=== PATIENT | female | born 1955 ===

== ENCOUNTER 2016-05-31 16:44 | Inpatient (IN) | payer MEDICAID ==
[2016-05-31 16:45] VITALS: BMI 25.7
--- NOTE | 2016-05-31 17:12 | CT ---
PROCEDURE: CT HEAD WITHOUT CONTRAST. HISTORY: code stroke COMPARISON: None available. TECHNIQUE: Axial computed tomography images were obtained through the head/brain without intravenous contrast. Radiation dose: Total exam DLP = 740.79 mGy-cm. This CT exam was performed using one or more of the following dose reduction techniques: Automated exposure control, adjustment of the mA and/or kV according to patient size, and/or use of iterative reconstruction technique. FINDINGS: HEMORRHAGE: No intracranial hemorrhage. BRAIN: No mass effect or edema. Intracranial atherosclerotic calcifications. The leon-white matter differentiation appears intact. Please note that MRI with diffusion imaging is more sensitive in the detection of acute ischemic event. VENTRICLES: No hydrocephalus. CALVARIUM: Unremarkable. PARANASAL SINUSES: Unremarkable as visualized. No significant inflammatory changes. MASTOID AIR CELLS: Unremarkable as visualized. No inflammatory changes. OTHER FINDINGS: None. IMPRESSION: No acute intracranial pathology identified. Findings discussed with Dr. Machuca on 05/31/16 at 5:05 p.m.
[2016-05-31 17:18] LABS: BASO # 0.1 K/uL (0.0-0.2); BASO % 1.3 % (0.0-2.0); EOS # 0.2 K/uL (0.0-0.7); EOS % 3.1 % (0.0-4.0); HEMATOCRIT 38.6 % (34.0-47.0); LYMPH # 1.8 K/uL (1.0-4.3); LYMPH % 22.8 % (20.0-40.0); MEAN CELL VOLUME 99.5 fl (81.0-99.0); MEAN CORPUSCULAR HEMOGLOBIN 32.4 pg (27.0-31.0); MEAN CORPUSCULAR HGB CONC 32.6 g/dL (33.0-37.0); MEAN PLATELET VOLUME 8.7 fl (7.2-11.7); MONO # 0.8 K/uL (0.0-0.8); MONO % 9.8 % (0.0-10.0); RED CELL DISTRIBUTION WIDTH 15.7 % (11.5-14.5); WHITE BLOOD COUNT 7.9 K/uL (4.8-10.8)
--- NOTE | 2016-05-31 17:28 | ED PDOC ---
HPI:STROKE - Time Time: 16:47 - Historian Historian: Patient - Chief Complaint Chief Complaint: Weakness, Numbness, Slurred speech, Difficulty walking - Onset Date: 05/31/16 Onset: Just prior to presenting - Timing Timing: Improved - Severity of pain Maximum severity:: Moderate - Associated Symptoms Associated symptoms:: Headache, Numbness, Nausea, Visual (blurry vision) - Notes: Notes:: 61 year old female with a pertinent medical history of HTN, HIV, hypercholesterolemia, and chronic lower back pain presents to the ED with a possible CVA. She reports having numbness and weakness to her left arm and legs , and trouble talking and talking an hour prior to arrival, but upon presenting to the ED most of her symptoms have resolved. She first went to the clinic, and they advised her to go to the ED for her symptoms. Upon arrival a code stroke was called. She reports having intermittent episodes of hand numbness that occurs in both hands (for the past 1x month), but is taking longer and longer to resolve. She also reports having a headache for the past 1x day, and a cough productive of greenish-grayish sputum that started 2x weeks ago. She also has associated symptoms of nausea and blurry vision. She denies having chest pain, shortness of breath, vomiting, diarrhea, and swelling. Of note: patient has an irregularly irregular heartbeat. She reports that she had a similar experience 4x years ago. She went to her PMD and he referred her to a seo engineer but she was unable to schedule an appointment. PMD: Anyi Ashford MD. NIHSS Stroke Scale - Date/Time Evaluation Performed Date Performed: 05/31/16 Time Performed: 16:45 When Was NIHSS Performed: Baseline - How Severe is the Stroke Level of Consciousness: 0=Alert LOC to Questions: 0=Both comments correct LOC to commands: 0=Obeys both correctly Best Gaze: 0=Normal Visual: 0=No visual loss Facial: 1=Minor asymmetry Motor Arm - Left: 0=No drift Motor Arm - Right: 0=No drift Motor Leg - Left: 0=No drift Motor Leg - Right: 0=No drift Limb Ataxia: 0=Absent Sensory: 1=Mild to moderate loss Best Language: 0=No aphasia Dysarthia: 1=Mild to moderate slurring Extinction & Inattention (Neglect): 0=Normal, no object Score: 3 rTPA Inclusion/Exclusion - Refusal of Treatment Patient Refused Treatment: No - Inclusion Criteria for Altepase Patient is 18 years or Older: Yes The Clinical Diagnosis of Ischemic Stroke That is Causing a Potentially Disabling Neurological Deficit: No Time of Onset is Well Established to be Less Than 270 Minute Before Treatment Would Begin: Yes Risk/Benefit Discussed With Patient/Family Member Present: Yes - Exclusion Criteria for Altepase Uncontrolled Hypertension at Time of Treatment (Systolic BP above 185 or Diastolic BP above 110 mmHg): No - Warning to TPA With Conditions Condition: Stroke Serevity Too Mild Past Medical History Reviewed: Historical Data, Nursing Documentation, Vital Signs Vital Signs: Last Vital Signs Temp 98.0 F 05/31/16 16:47 Pulse 77 05/31/16 17:11 Resp 15 05/31/16 17:11 BP 98/49 L 05/31/16 17:11 Pulse Ox 100 05/31/16 17:11 - Medical History PMH: Arthritis (chronic, left knee), Back Problems (herniated discs x3 (low back )), HIV, HTN, Hyperlipidemia, Osteoporosis Denies: Diabetes (patient denies), Chronic Kidney Disease - Surgical History Surgical History: (x1) - Family History Family History: States: Diabetes, Hypertension - Social History Current smoker - smoking cessation education provided: Yes Alcohol: None Drugs: Denies - Home Medications Home Medications: Ambulatory Orders Medication Instructions Recorded Aspirin [Ecotrin] 81 mg PO DAILY 03/31/16 DULoxetine [Cymbalta] 60 mg PO DAILY 03/31/16 Darunavir [Prezista] 800 mg PO HS 03/31/16 Emtricitabine/Tenofovir Diso 1 tab PO HS 03/31/16 [Truvada 200 MG-300 MG] Enalapril Maleate [Vasotec] 5 mg PO DAILY 03/31/16 Ritonavir [Norvir] 100 mg PO HS 03/31/16 Cyclobenzaprine [Cyclobenzaprine 10 mg PO TID PRN #20 tab 04/14/16 HCl] Ascorbic Acid [Vitamin C] 1 tab PO DAILY 05/31/16 Gabapentin [Neurontin] 800 mg PO TID 05/31/16 QUEtiapine [Seroquel] 100 mg PO HS 05/31/16 traMADol [Ultram] 50 mg PO BID PRN 04/19/17 - Allergies Allergies/Adverse Reactions: Allergies Allergy/AdvReac Type Severity Reaction Status Date / Time No Known Allergies Allergy Verified 12/19/15 19:37 Review of Systems ROS Statement: Except As Marked, All Systems Reviewed And Found Negative Constitutional: Negative for: Fever Eyes: Positive for: Vision Change (blurry vision) Cardiovascular: Negative for: Chest Pain Respiratory: Positive for: Cough, Sputum (greenish leon. no blood). Negative for: Shortness of Breath, Hemoptysis Gastrointestinal: Positive for: Nausea. Negative for: Vomiting, Diarrhea Musculoskeletal: Negative for: Other (swelling) Neurological: Positive for: Weakness, Numbness, Change in Speech, Headache Physical Exam - Reviewed Nursing Documentation Reviewed: Yes Vital Signs Reviewed: Yes - Physical Exam Appears: Positive for: Well, Non-toxic, No Acute Distress Head Exam: Positive for: ATRAUMATIC, NORMOCEPHALIC Skin: Positive for: Warm, Dry, Pallor Eye Exam: Positive for: Normal appearance, EOMI, PERRL Cardiovascular/Chest: Positive for: Bradycardia, Irregularly Irregular. Negative for: Murmur Respiratory: Positive for: Normal Breath Sounds (lungs are clear) Pulses-Dorsalis Pedis (L): 2+ Pulses-Dorsalis Pedis (R): 2+ (DP pulses strong) Pulses-Radial (L): 2+ Pulses-Radial (R): 2+ (radial pulses strong) Gastrointestinal/Abdominal: Positive for: Normal Exam, Soft. Negative for: Tenderness, Other (edema) Neurologic/Psych: Positive for: Alert, Oriented (3x), Facial Droop (subtle left sided facial droop. Does not include the eyebrow), Other (subjective decreased light touch to left side of the face and to left arm. Mild dysarthria) - Laboratory Results Result Diagrams: 05/31/16 17:05 05/31/16 17:05 - ECG ECG Rhythm: Positive for: Sinus Rhythm (rate of 70). Negative for: ST/T Changes Interpretation Of Abn EKG: frequent PVCs in the pattern of bigeminy. O2 Sat by Pulse Oximetry: 100 (RA) Pulse Ox Interpretation: Normal - CT Scan/US CT head Other Rad Studies (CT/US): Read By Radiologist, Radiology Report Reviewed Medical Decision Making Medical Decision Makin:47 Initial impression: 61 year old female with bradyarrythmia or a possible TIA. Differential diagnoses include but are not limited to electrolyte abnormality, acute coronary syndrome, or encephalopathy. Plan is to hospitalize patient for complete neurological and cardiological work up. Initial plan: * CT head w/o contrast (code stroke) * type and screen * EKG * b-type natriuretic peptide * CMP * hemoglobin A1C * lipid panel * magnesium * phosphorous * TSH * troponin I * CBC * PTT * prothrombin time * diagnostic cardiac sonographer * accucheck * reevaluation 16:56 CT head (no contrast) results read and reviewed by radiologist. FINDINGS: HEMORRHAGE: No intracranial hemorrhage. BRAIN: No mass effect or edema. Intracranial atherosclerotic calcifications. The leon- white matter differentiation appears intact. Please note that MRI with diffusion imaging is more sensitive in the detection of acute ischemic event. VENTRICLES: No hydrocephalus. CALVARIUM: Unremarkable. PARANASAL SINUSES: Unremarkable as visualized. No significant inflammatory changes. MASTOID AIR CELLS: Unremarkable as visualized. No inflammatory changes. OTHER FINDINGS: None. IMPRESSION: No acute intracranial pathology identified. Findings discussed with Dr. Machuca on 05/31/16 at 5:05 p.m. 1730 ASA ordered for possible TIA Percocet ordered for chronic pain 18:05 Discussed case and EKG findings with Dr. Hansen. He will further evaluate the patient in hospital and has no other recommendations at this time. Labs unremarkable CXR demonstrates possible RML infiltrate DW Dr Rodrigo DIXON resident for hospitalization Scribe Attestation: Documented by Sandy Johnson, acting as a scribe for Salma Larson MD. Provider Scribe Attestation: All medical record entries made by the Scribe were at my direction and personally dictated by me. I have reviewed the chart and agree that the record accurately reflects my personal performance of the history, physical exam, medical decision making, and the department course for this patient. I have also personally directed, reviewed, and agree with the discharge instructions and disposition. Disposition - Clinical Impression Clinical Impression: Transient cerebral ischemia, Pneumonia, Cardiac arrhythmia - Disposition Disposition Time: 16:50 Condition: STABLE - Pt Status Changed To: Hospital Disposition Of: Inpatient - Admit Certification Admit to Inpatient:: After my assessment, the patient will require hospitalization for at least two midnights. This is because of the severity of symptoms shown, intensity of services needed, and/or the medical risk in this patient being treated as an outpatient. - POA Present On Arrival: None Core Measure Indicators: Code Stroke
[2016-05-31 17:29] LABS: ALB/GLOB RATIO 1.2 (1.0-2.1); ALKALINE PHOSPHATASE 79 U/L (38-126); ALT/SGPT 22 U/L (9-52); AST/SGOT 24 U/L (14-36); BILIRUBIN,TOTAL 0.3 mg/dl (0.2-1.3); BLOOD UREA NITROGEN 22 mg/dl (7-17); CALCIUM 9.6 mg/dL (8.4-10.2); CARBON DIOXIDE 30 mmol/L (22-30); CHLORIDE 103 mmol/L (98-107); CHOLESTEROL 203 mg/dL (0-199); GFR AFRICAN-AMERICAN > 60; GLUCOSE,RANDOM 91 mg/dL (65-105); MAGNESIUM 2.1 MG/DL (1.6-2.3); POTASSIUM 4.4 MMOL/L (3.6-5.0); SODIUM 141 mmol/l (132-148); TOTAL PROTEIN 6.8 G/DL (6.3-8.2)
[2016-05-31 17:43] LABS: PARTIAL THROMBOPLASTIN TIME 26.4 SECONDS (23.3-32.5)
[2016-05-31 17:59] LABS: THYROID STIMULATING HORMONE 0.02 mIU/ML (0.46-4.68)
[2016-05-31] MEDS ORDERED: Sodium Chloride 0.9% 1,000 ML IV STA (18:12)
[2016-05-31] MEDS ORDERED: cefTRIAXone (Rocephin) 1 gm Inj ONE (18:12)
[2016-05-31] MEDS ORDERED: Azithromycin 500 MG in Sodium Chloride 0.9% 250 ML IVPB ONE (18:15)
[2016-05-31] MEDS ORDERED: Oxycodone/Acetaminophen 5/325 mg Tab PO STA (18:25)
[2016-05-31] MEDS ORDERED: Oxycodone/Acetaminophen 5/325 mg Tab ONE (19:02)
--- NOTE | 2016-05-31 19:08 | CP.PCM.HP ---
History of Present Illness - History of Present Illness History of Present Illness: 61yo F with PMHx HIV, polio, chronic back pain d/t neuropathy, chronic foot pain , gout, HTN, HLD admitted for TIA, RML PNA, and arrythmia. c/o floaters yesterday in vision. Denies complete loss of vision, bright light, flashing light. Reports h/o floaters in vision for months, last check with opthomology WNL. c/o UE numbness in both hands/fingers L>R which is intermittent and resolves. 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 c/o slurring of speech x5 months, last noticed by PCP Dr. Ashford today which prompeted ED eval. a/w feeling gait imbalance which resolved. In addition c/o productive cough x2 weeks , green sputum. h/o chronic smoking. Denies SOB, wheezing, fever, chills, n/v. Denies chest pain, palpitations. In addition c/o dysuria, denies hematuria. Previously followed with pain management for back pain and h/o prior epidurals. Follow with Dr. Ashford for HIV management, 04/19/16 last viral load undetectable, CD4 850. ED course: VSS CBC, no leukocytosis CMP coags WNL troponin neg pBNP WNL lipid panel, chol 203 TSH 0.[address] head no acute change EKG-PVCs in bigeminy c/s Cardio, observe pt ASA 325mg x1 azithromycin ceftriaxone Social hx: smoking 1ppd x30 years, EtOH occasionally, denies current drug use Surgical hx: C section FHx:denies cancer or autoimmune disease Allergies: NKDA meds: checked in [facility] Present on Admission - Present on Admission Any Indicators Present on Admission: No Review of Systems - Constitutional Constitutional: absent: Chills, Fever - EENT Eyes: Change in Vision - Cardiovascular Cardiovascular: absent: Chest Pain - Respiratory Respiratory: absent: Dyspnea - Gastrointestinal Gastrointestinal: absent: Abdominal Pain, Diarrhea, Nausea, Vomiting - Genitourinary Genitourinary: absent: Dysuria, Hematuria - Musculoskeletal Musculoskeletal: absent: Back Pain - Neurological Neurological: Focal Weakness, Other Visual Disturbances Past Patient History - Infectious Disease Hx of Infectious Diseases: None - Tetanus Immunizations Tetanus Immunization: Unknown - Past Medical History & Family History Past Medical History?: Yes - Past Social History Alcohol: None Drugs: Denies - CARDIAC Hx Hypertension: Yes - PULMONARY Hx Respiratory Disorders: No - NEUROLOGICAL Hx Neurological Disorder: (Neuropathy ) - HEENT Hx HEENT Problems: Yes Other/Comment: Use contact lenses - RENAL Hx Chronic Kidney Disease: No - ENDOCRINE/METABOLIC Hx Diabetes Mellitus Type 2: Yes - HEMATOLOGICAL/ONCOLOGICAL Hx Human Immunodeficiency Virus (HIV): Yes - INTEGUMENTARY Hx Dermatological Problems: No - MUSCULOSKELETAL/RHEUMATOLOGICAL Hx Arthritis: Yes (chronic, left knee) Hx Osteoporosis: Yes - GASTROINTESTINAL Hx Gastrointestinal Disorders: No - GENITOURINARY/GYNECOLOGICAL Hx Genitourinary Disorders: No - PSYCHIATRIC Hx Psychophysiologic Disorder: No Hx Substance Use: No - SURGICAL HISTORY Hx Surgeries: Yes Hx Orthopedic Surgery: Yes - ANESTHESIA Hx Anesthesia: Yes Hx Anesthesia Reactions: No Meds Allergies/Adverse Reactions: Allergies Allergy/AdvReac Type Severity Reaction Status Date / Time No Known Allergies Allergy Verified 12/19/15 19:37 Physical Exam - Constitutional Appears: Well, No Acute Distress - Head Exam Head Exam: ATRAUMATIC, NORMAL INSPECTION - Eye Exam Eye Exam: EOMI, PERRL - ENT Exam ENT Exam: Mucous Membranes Moist - Neck Exam Neck exam: Positive for: Normal Inspection - Respiratory Exam Respiratory Exam: Clear to Auscultation Bilateral - Cardiovascular Exam Cardiovascular Exam: REGULAR RHYTHM - GI/Abdominal Exam GI & Abdominal Exam: Normal Bowel Sounds, Soft - Extremities Exam Extremities exam: Positive for: normal inspection. Negative for: pedal edema - Neurological Exam Neurological exam: Alert, CN II-XII Intact, Normal Gait, Oriented x3 - Skin Skin Exam: Dry, Warm Results - Vital Signs Recent Vital Signs: Last Vital Signs Temp 98.0 F 05/31/16 16:47 Pulse 77 05/31/16 18:22 Resp 15 05/31/16 18:22 BP 133/77 05/31/16 18:22 Pulse Ox 100 05/31/16 18:22 - Labs Result Diagrams: 05/31/16 17:05 05/31/16 17:05 Assessment & Plan - Assessment and Plan (Free Text) Assessment: 61yo F with PMHx HIV, polio, chronic back pain d/t neuropathy, chronic foot pain , gout, HTN, HLD admitted for TIA, RML PNA and arrythmia. TIA -CT head no acute change -ASA 81mg -atorvastatin 40mg -ASCVD 10yr risk 8.3% -PT/OT -follows outpt with Neuro Dr. Beltran -consider Neuro c/s and MRI RML PNA -comparision to 04/14/16 CXR shows no acute change -azithromycin x1 -ceftriaxone x1 -FU CXR final read. May consider PO abx if PNA on final read. -will wait to order next dose of abx till final read arrythmia -may be 2/2/ hypothyroidism -repeat TFTs -EKG-PVCs in bigeminy -c/s Cardio in ED, observe pt -cont tele hypothyroidism -TSH 0.02 -last TFTs WNL 05/03/16 TSH 1.33, T4 1.3 -repeat TFTs HIV -c/w home meds, last taken yesterday night -04/19/16 vl not detectable -04/19/16 CD4 count 850 -no ppx abx at this time HTN -enalapril dysuria -FU UA DVT ppx -lovenox Decision To Admit - Pt Status Changed To: Hospital Disposition Of: Inpatient - Admit Certification Admit to Inpatient:: After my assessment, the patient will require hospitalization for at least two midnights. This is because of the severity of symptoms shown, intensity of services needed, and/or the medical risk in this patient being treated as an outpatient. - . Bed Request Type: Telemetry Admitting Physician: Sadie Matthews
[2016-05-31 20:34] LABS: RBC URINE 5 /hpf (0-3); URINE BILIRUBIN NEGATIVE (NEGATIVE); URINE BLOOD NEGATIVE (NEGATIVE); URINE COLOR YELLOW (YELLOW); URINE GLUCOSE (UA) NEG (Normal); URINE KETONE NEGATIVE (NEGATIVE); URINE LEUKOCYTE ESTERASE LARGE Leu/uL (Negative); URINE PROTEIN NEGATIVE (NEGATIVE); URINE UROBILINOGEN 0.2-1.0 mg/dL (0.2-1.0); WBC URINE 42 /hpf (0-5)
[2016-05-31] MEDS: Emtricitabine-Tenofovir 200 mg-300 mg Tab PO SCH (21:26)
[2016-06-01 05:38] LABS: BASO # 0.1 K/uL (0.0-0.2); BASO % 1.1 % (0.0-2.0); EOS # 0.3 K/uL (0.0-0.7); EOS % 4.7 % (0.0-4.0); HEMATOCRIT 38.3 % (34.0-47.0); LYMPH # 2.3 K/uL (1.0-4.3); LYMPH % 33.4 % (20.0-40.0); MEAN CELL VOLUME 99.8 fl (81.0-99.0); MEAN CORPUSCULAR HEMOGLOBIN 32.3 pg (27.0-31.0); MEAN CORPUSCULAR HGB CONC 32.4 g/dL (33.0-37.0); MEAN PLATELET VOLUME 8.9 fl (7.2-11.7); MONO # 0.7 K/uL (0.0-0.8); MONO % 10.8 % (0.0-10.0); NEUT # 3.4 K/uL (1.8-7.0); NRBC % 0.1 % (0.0-0.0); RED CELL DISTRIBUTION WIDTH 15.5 % (11.5-14.5); WHITE BLOOD COUNT 6.8 K/uL (4.8-10.8)
[2016-06-01 05:45] LABS: BLOOD UREA NITROGEN 18 mg/dl (7-17); CALCIUM 8.5 mg/dL (8.4-10.2); CARBON DIOXIDE 26 mmol/L (22-30); CHLORIDE 107 mmol/L (98-107); GFR AFRICAN-AMERICAN > 60; GLUCOSE,RANDOM 87 mg/dL (65-105); POTASSIUM 3.9 MMOL/L (3.6-5.0); SODIUM 143 mmol/l (132-148)
[2016-06-01 05:53] LABS: T4 4.88 ug/dl (5.5-11.0)
--- NOTE | 2016-06-01 07:38 | CP.PCM.PN ---
Subjective - Date & Time of Evaluation Date of Evaluation: 06/01/16 Time of Evaluation: 07:38 - Subjective Subjective: pt seen and examined at bedside this morning. No acute events overnight. Lying in bed comfortably, NAD. Pt reports sleeping well overnight without any issues. Reports minor tingling in hands that has improved yesterday. Denies dysuria, cloudy, foul smelling urine today. No new medical issues. Denies fever/chills, headaches, changes in vision, slurred speech, CP/SOB/RAMIREZ/cough, N/V/D/C, urinary symptoms, numbness/tingling. Objective - Vital Signs/Intake and Output Vital Signs (last 24 hours): Temp Pulse Resp BP Pulse Ox 97.8 F 60 18 102/62 97 06/01/16 05:07 06/01/16 05:07 06/01/16 05:07 06/01/16 05:07 06/01/16 05:07 - Medications Medications: Current Medications Aspirin (Ecotrin) 81 mg PO DAILY [facility] Atorvastatin Calcium (Lipitor) 40 mg PO DAILY [facility] Cyclobenzaprine HCl (Flexeril) 10 mg PO TID PRN PRN Reason: Muscle spasm Darunavir (Prezista) 800 mg PO HS [facility] Last Admin: 05/31/16 21:26 Dose: 800 mg Duloxetine HCl (Cymbalta) 60 mg PO DAILY [facility] Emtricitabine/Tenofovir (Truvada 200 Mg-300 Mg) 1 tab PO HS [facility] Last Admin: 05/31/16 21:26 Dose: 1 tab Enalapril Maleate (Vasotec) 5 mg PO DAILY [facility] Enoxaparin Sodium (Lovenox) 40 mg SC DAILY [facility] PRN Reason: Protocol Gabapentin (Neurontin) 800 mg PO TID [facility] Nicotine (Nicoderm Cq) 1 patch TD DAILY [facility] Quetiapine Fumarate (Seroquel) 100 mg PO HS [facility] Last Admin: 05/31/16 23:47 Dose: 100 mg Ritonavir (Norvir) 100 mg PO HS [facility] Last Admin: 05/31/16 21:25 Dose: 100 mg Tramadol HCl (Ultram) 50 mg PO BID PRN PRN Reason: Pain, severe (8-10) - Labs Labs: 06/01/16 04:10 06/01/16 04:10 PT 10.3 SECONDS (9.6-11.2) 05/31/16 17:05 INR 0.99 (0.92-1.08) 05/31/16 17:05 APTT 26.4 SECONDS (23.3-32.5) 05/31/16 17:05 - Constitutional Appears: Well, Non-toxic, No Acute Distress - Eye Exam Eye Exam: EOMI. absent: Conjunctival injection, Nystagmus, Scleral icterus Pupil Exam: NORMAL ACCOMODATION, PERRL - ENT Exam ENT Exam: Mucous Membranes Moist - Neck Exam Neck Exam: Full ROM - Respiratory Exam Respiratory Exam: Decreased Breath Sounds (decreased breath sounds at lung bases bilaterally. ), Clear to Ausculation Bilateral, NORMAL BREATHING PATTERN. absent: Rales, Rhonchi, Wheezes, Respiratory Distress - Cardiovascular Exam Cardiovascular Exam: Irregular Rhythm. absent: Tachycardia, Gallop, JVD, Rubs, Murmur - GI/Abdominal Exam GI & Abdominal Exam: Soft, Normal Bowel Sounds. absent: Distended, Firm, Guarding, Rigid, Tenderness - Extremities Exam Extremities Exam: Full ROM, Normal Capillary Refill, Normal Inspection. absent : Calf Tenderness, Pedal Edema - Neurological Exam Neurological Exam: Alert, Awake, CN II-XII Intact, Oriented x3. absent: Normal Gait (unable to access gait this morning, pt didnt want to get out of bed) Neuro motor strength exam: Left Upper Extremity: 5, Right Upper Extremity: 3 ( pt reports this is baseline weakness), Left Lower Extremity: 4, Right Lower Extremity: 4 - Psychiatric Exam Psychiatric exam: Normal Affect, Normal Mood - Skin Skin Exam: Dry, Intact, Normal Color, Warm Assessment and Plan (1) TIA (transient ischemic attack) Assessment & Plan: Code stroke called in ED Admitted to Tele Non-Contrast Head CT: no acute intracranial pathology. Brain MRI: pending Carotid Doppler: pending CBC: wnl CMP: wnl Troponin: negative Coags: wnl Folate: wnl B12: wnl Given 325mg Aspirin Atorvastatin 40mg QD Neurology Consult appreciated PT/OT eval and tx Status: Acute (2) Urinary tract infection Assessment & Plan: -UA: large leukocyte esterase, 42 WBCs -1 dose of Rochephin in ED -another dose of 1gm Rocephin Status: Acute (3) Pneumonia Assessment & Plan: afebrile cough resolved as per pt CBC: 6.8>12.4/38.2<231 CXR: no evidence of acute pulmonary disease of significant interval change since previous exam. Given one dose of Rocephin and one dose of Zithromax in ED. Status: Acute (4) HIV infection, asymptomatic Assessment & Plan: Viral load: undetectable Last CD4+: 800 Continue with home medications Status: Chronic (5) Essential (primary) hypertension Assessment & Plan: continue with home medications Status: Acute (6) DVT prophylaxis Assessment & Plan: Lovenox 40 SC QD Status: Acute
[2016-06-01] MEDS: Enoxaparin 40 mg Syringe SC SCH (09:15)
--- NOTE | 2016-06-01 09:57 | RAD ---
HISTORY: code stroke COMPARISON: Comparison is made to the previous study dated 04/14/2016 FINDINGS: LUNGS: No evidence of new infiltrate or consolidation in the lungs. Pleural thickening at the lung apices are noted again. PLEURA: No significant pleural effusion identified, no pneumothorax apparent. CARDIOVASCULAR: Normal. OSSEOUS STRUCTURES: No significant abnormalities. VISUALIZED UPPER ABDOMEN: Normal. OTHER FINDINGS: None. IMPRESSION: No evidence of acute pulmonary disease or significant interval change since the previous exam.
--- NOTE | 2016-06-01 13:42 | PQF GENQUE ---
This form is a permanent part of the medical record 06/01/16 Dr. Matthews, After workup please clarify if the pneumonia is ruled in or ruled out. Admitted with a productive cough (green sputum) for 2 weeks. Afebrile, WBC 7.9 , CXR: No evidence of acute pulmonary disease. Treated with Rocephin and Zithromax in the ER. Diagnoses include : TIA, UTI, Pneumonia Clarification of your documentation is requested to better reflect the severity of illness and intensity of treatment of your patient. PHYSICIAN'S RESPONSE [ ] Pneumonia ruled in [ ] Pneumonia ruled out [ ] Other explanation ( Please specify) Based on your medical judgment of the clinical indicators outlined above please clarify the following: [] Practitioner response [] If unable to determine, please check the box, sign and date. Present On Admission (POA) Indicator: [] Present at the time of admission [] Not present at the time of admission [] Clinically Undetermined In responding to this query, please exercise your independent professional judgment. The fact that a question is asked does not imply that any particular answer is desired or expected. Thank you for your clarification on this documentation. If you have any questions please call:extension [phone] * Thank you, Lizbeth Caldera RN CDMP [facility]
--- NOTE | 2016-06-01 14:37 | MRI ---
PROCEDURE: MRI BRAIN WITHOUT CONTRAST HISTORY: TIA-like symptoms COMPARISON: Comparison is made to the previous CT of the head dated 05/31/2016. TECHNIQUE: Multiplanar, multisequence MR images of the brain were obtained without intravenous contrast enhancement. FINDINGS: Suboptimal study due to patient's motion. HEMORRHAGE: None DWI: No evidence of an acute or early subacute infarction. BRAIN PARENCHYMA: Questionable with defined hypointense lesion at the anterior aspect of the left cerebellar hemisphere versus artifact seen on image 7 series 5 measures 6 millimeter not clearly seen in the T1 and FLAIR images Few scattered nonspecific small foci of hyperintense T2 and FLAIR signal seen in the white matter suggestive but nonspecific for chronic microvascular ischemic disease. VENTRICLES: Unremarkable. No hydrocephalus. CRANIUM: Unremarkable. ORBITS: Grossly unremarkable. PARANASAL SINUSES/MASTOIDS: Clear VASCULAR SYSTEM: Skull base flow voids intact. OTHER FINDINGS: None. IMPRESSION: No evidence of acute or subacute infarct. Suboptimal study due to patient's motion. Questionable 6 millimeter hypointense T2 well defined lesion at the left cerebellum versus artifact. Few scattered hyperintense T2 and FLAIR signal white matter lesions suggestive but nonspecific for chronic microvascular ischemic disease.
--- NOTE | 2016-06-01 15:23 | CP.PCM.PCO ---
Physician Communication Note - Physician Communication Note Physician Communication Note: Patient with bronchitis - no pneumonia noted at present time.
[2016-06-01] MEDS ORDERED: Oxycodone/Acetaminophen 5/325 mg Tab PO STA (15:54)
[2016-06-01] MEDS: Emtricitabine-Tenofovir 200 mg-300 mg Tab PO SCH (21:46)
--- NOTE | 2016-06-02 00:35 | CP.PCM.CON ---
History of Present Illness - History of Present Illness History of Present Illness: - Chief Complaint Chief Complaint: Weakness, Numbness, Slurred speech, Difficulty walking Receiving treatment for a Positive HIV - Onset Date: 05/31/16 Onset: Just prior to presenting - Timing Timing: Improved - Severity of pain Maximum severity:: Moderate - Associated Symptoms Associated symptoms:: Headache, Numbness, Nausea, Visual (blurry vision) - Notes: Notes:: 61 year old female with a pertinent medical history of HTN, HIV, hypercholesterolemia, and chronic lower back pain presents to the ED with a possible CVA. She reports having numbness and weakness to her left arm and legs , and trouble talking and talking an hour prior to arrival, but upon presenting to the ED most of her symptoms have resolved. She first went to the clinic, and they advised her to go to the ED for her symptoms. Upon arrival a code stroke was called. She reports having intermittent episodes of hand numbness that occurs in both hands (for the past 1x month), but is taking longer and longer to resolve. She also reports having a headache for the past 1x day, and a cough productive of greenish-grayish sputum that started 2x weeks ago. She also has associated symptoms of nausea and blurry vision. She denies having chest pain, shortness of breath, vomiting, diarrhea, and swelling. H/O Multiple disc herniation in the Lumbar area and significant cervical neck pain. History of Tingling and numbness peripherally in both UEs and LEs since she was started on HIV Medicine. Of note: patient has an irregularly irregular heartbeat. She reports that she had a similar experience 4x years ago. She went to her PMD and he referred her to a culinary arts teacher but she was unable to schedule an appointment. PMD: Anyi Ashford MD. NIHSS Stroke Scale - Date/Time Evaluation Performed Date Performed: 05/31/16 Time Performed: 16:45 When Was NIHSS Performed: Baseline - How Severe is the Stroke Level of Consciousness: 0=Alert LOC to Questions: 0=Both comments correct LOC to commands: 0=Obeys both correctly Best Gaze: 0=Normal Visual: 0=No visual loss Facial: 1=Minor asymmetry Motor Arm - Left: 0=No drift Motor Arm - Right: 0=No drift Motor Leg - Left: 0=No drift Motor Leg - Right: 0=No drift Limb Ataxia: 0=Absent Sensory: 1=Mild to moderate loss Best Language: 0=No aphasia Dysarthia: 1=Mild to moderate slurring Extinction & Inattention (Neglect): 0=Normal, no object Score: 3 Last Vital Signs Temp 98.0 F 05/31/16 16:47 Pulse 77 05/31/16 17:11 Resp 15 05/31/16 17:11 BP 98/49 L 05/31/16 17:11 Pulse Ox 100 05/31/16 17:11 - Medical History PMH: Arthritis (chronic, left knee), Back Problems (herniated discs x3 (low back )), HIV, HTN, Hyperlipidemia, Osteoporosis Denies: Diabetes (patient denies), Chronic Kidney Disease - Surgical History Surgical History: (x1) - Family History Family History: States: Diabetes, Hypertension - Social History Current smoker - smoking cessation education provided: Yes Alcohol: None Drugs: Denies - Home Medications Home Medications: Ambulatory Orders Medication Instructions Recorded Aspirin [Ecotrin] 81 mg PO DAILY 03/31/16 DULoxetine [Cymbalta] 60 mg PO DAILY 03/31/16 Darunavir [Prezista] 800 mg PO HS 03/31/16 Emtricitabine/Tenofovir Diso 1 tab PO HS 03/31/16 [Truvada 200 MG-300 MG] Enalapril Maleate [Vasotec] 5 mg PO DAILY 03/31/16 Ritonavir [Norvir] 100 mg PO HS 03/31/16 Cyclobenzaprine [Cyclobenzaprine 10 mg PO TID PRN #20 tab 04/14/16 HCl] Ascorbic Acid [Vitamin C] 1 tab PO DAILY 05/31/16 Gabapentin [Neurontin] 800 mg PO TID 05/31/16 QUEtiapine [Seroquel] 100 mg PO HS 05/31/16 traMADol [Ultram] 50 mg PO BID PRN 05/31/16 - Allergies Allergies/Adverse Reactions: Allergies Allergy/AdvReac Type Severity Reaction Status Date / Time No Known Allergies Allergy Verified 12/19/15 19:37 Review of Systems ROS Statement: Except As Marked, All Systems Reviewed And Found Negative Constitutional: Negative for: Fever Eyes: Positive for: Vision Change (blurry vision) Cardiovascular: Negative for: Chest Pain Respiratory: Positive for: Cough, Sputum (greenish leon. no blood). Negative for: Shortness of Breath, Hemoptysis Gastrointestinal: Positive for: Nausea. Negative for: Vomiting, Diarrhea Musculoskeletal: Negative for: Other (swelling) Neurological: Positive for: Weakness, Numbness, Change in Speech, Headache Physical Exam - Reviewed Nursing Documentation Reviewed: Yes Vital Signs Reviewed: Yes - Physical Exam Appears: Positive for: Well, Non-toxic, No Acute Distress Head Exam: Positive for: ATRAUMATIC, NORMOCEPHALIC Skin: Positive for: Warm, Dry, Pallor Eye Exam: Positive for: Normal appearance, EOMI, PERRL Cardiovascular/Chest: Positive for: Bradycardia, Irregularly Irregular. Negative for: Murmur Respiratory: Positive for: Normal Breath Sounds (lungs are clear) Pulses-Dorsalis Pedis (L): 2+ Pulses-Dorsalis Pedis (R): 2+ (DP pulses strong) Pulses-Radial (L): 2+ Pulses-Radial (R): 2+ (radial pulses strong) Gastrointestinal/Abdominal: Positive for: Normal Exam, Soft. Negative for: Tenderness, Other (edema) Neurologic/Psych: Positive for: Alert, Oriented (3x), Facial Droop (subtle left sided facial droop. Does not include the eyebrow), Other (subjective decreased light touch to left side of the face and to left arm. Mild dysarthria) CT head (no contrast): IMPRESSION: No acute intracranial pathology identified. Disposition - Clinical Impression Clinical Impression: Transient cerebral ischemia, Pneumonia, Cardiac arrhythmia - Disposition Disposition Time: 16:50 Condition: STABLE - Pt Status Changed To: Hospital Disposition Of: Inpatient - Admit Certification Admit to Inpatient:: After my assessment, the patient will require hospitalization for at least two midnights. This is because of the severity of symptoms shown, intensity of services needed, and/or the medical risk in this patient being treated as an outpatient. - POA Present On Arrival: None Core Measure Indicators: Code Stroke Past Patient History - Infectious Disease Hx of Infectious Diseases: None - Tetanus Immunizations Tetanus Immunization: Unknown - Past Medical History & Family History Past Medical History?: Yes - Past Social History Smoking Status: Heavy Smoker > 10 Cigarettes Daily - CARDIAC Hx Cardiac Disorders: Yes Hx Hypercholesterolemia: Yes Hx Hypertension: Yes Other/Comment: irregularly irregular heartbeat (x4 years ago) - PULMONARY Hx Respiratory Disorders: No - NEUROLOGICAL Hx Neurological Disorder: Yes (Neuropathy ) - HEENT Hx HEENT Problems: Yes Other/Comment: Use contact lenses - RENAL Hx Chronic Kidney Disease: No - ENDOCRINE/METABOLIC Hx Endocrine Disorders: No - HEMATOLOGICAL/ONCOLOGICAL Hx Blood Disorders: Yes Hx Human Immunodeficiency Virus (HIV): Yes - INTEGUMENTARY Hx Dermatological Problems: No - MUSCULOSKELETAL/RHEUMATOLOGICAL Hx Musculoskeletal Disorders: Yes Hx Arthritis: Yes (chronic, left knee) Hx Back Pain: Yes (chronic, low back) Hx Falls: No Hx Herniated Disk: Yes (x3) Hx Osteoporosis: Yes - GASTROINTESTINAL Hx Gastrointestinal Disorders: No - GENITOURINARY/GYNECOLOGICAL Hx Genitourinary Disorders: No - PSYCHIATRIC Hx Psychophysiologic Disorder: No Hx Substance Use: No - SURGICAL HISTORY Hx Surgeries: Yes Hx Section: Yes (x1) Hx Orthopedic Surgery: Yes - ANESTHESIA Hx Anesthesia: Yes Hx Anesthesia Reactions: No Hx Malignant Hyperthermia: No Meds Allergies/Adverse Reactions: Allergies Allergy/AdvReac Type Severity Reaction Status Date / Time No Known Allergies Allergy Verified 12/19/15 19:37 - Medications Medications: Current Medications Aspirin (Ecotrin) 81 mg PO DAILY [facility] Last Admin: 06/01/16 09:15 Dose: 81 mg Atorvastatin Calcium (Lipitor) 40 mg PO DAILY [facility] Last Admin: 06/01/16 09:15 Dose: 40 mg Cyclobenzaprine HCl (Flexeril) 10 mg PO TID PRN PRN Reason: Muscle spasm Darunavir (Prezista) 800 mg PO HS [facility] Last Admin: 06/01/16 21:46 Dose: 800 mg Duloxetine HCl (Cymbalta) 60 mg PO DAILY [facility] Last Admin: 06/01/16 09:14 Dose: 60 mg Emtricitabine/Tenofovir (Truvada 200 Mg-300 Mg) 1 tab PO [facility] Last Admin: 06/01/16 21:46 Dose: 1 tab Enalapril Maleate (Vasotec) 5 mg PO DAILY [facility] Last Admin: 06/01/16 09:16 Dose: 5 mg Enoxaparin Sodium (Lovenox) 40 mg SC DAILY [facility] PRN Reason: Protocol Last Admin: 06/01/16 09:15 Dose: 40 mg Gabapentin (Neurontin) 800 mg PO TID [facility] Last Admin: 06/01/16 16:02 Dose: 800 mg Ceftriaxone Sodium 1 gm/ (Sodium Chloride) 100 mls @ 100 mls/hr IVPB DAILY [facility] Last Admin: 06/01/16 16:03 Dose: 100 mls/hr Nicotine (Nicoderm Cq) 1 patch TD DAILY [facility] Last Admin: 06/01/16 09:15 Dose: 1 patch Quetiapine Fumarate (Seroquel) 100 mg PO HS [facility] Last Admin: 06/01/16 21:46 Dose: 100 mg Ritonavir (Norvir) 100 mg PO HS [facility] Last Admin: 06/01/16 21:46 Dose: 100 mg Tramadol HCl (Ultram) 50 mg PO BID PRN PRN Reason: Pain, severe (8-10) Last Admin: 06/01/16 21:55 Dose: 50 mg Physical Exam - Neurological Exam Additional comments: Mental Status: Awake, Alert, Oriented X 3 Normal memory X 3 Fluent coherent speech Cranial Nerves II to XII: No Deficits Motor: Normal Tone, Normal Power limited neck movements Positive Lasegue test bilaterally History of multiple disc lesions and herniation in the Lower Back and the Cervical Spine. Sensory: Reduced sensation peripherally Cerebellar: Normal FNT Difficulty performing HST and Tandem walking Stature and Gait: Normal when slow. Results - Vital Signs Recent Vital Signs: Last Vital Signs Temp 98.1 F 06/01/16 23:52 Pulse 50 L 06/01/16 23:52 Resp 20 06/01/16 23:52 BP 119/51 L 06/01/16 23:52 Pulse Ox 100 06/01/16 23:52 - Labs Result Diagrams: 06/01/16 04:10 06/01/16 04:10 Labs: Laboratory Results - last 24 hr 06/01/16 06/01/16 04:10 09:02 WBC 6.8 RBC 3.84 Hgb 12.4 Hct 38.3 MCV 99.8 H MCH 32.3 H MCHC 32.4 L RDW 15.5 H Plt Count 231 MPV 8.9 Neut % (Auto) 50.0 Lymph % (Auto) 33.4 Cloud % (Auto) 10.8 H Eos % (Auto) 4.7 H Baso % (Auto) 1.1 Neut # 3.4 Lymph # 2.3 Cloud # 0.7 Eos # 0.3 Baso # 0.1 Sodium 143 Potassium 3.9 Chloride 107 Carbon Dioxide 26 Anion Gap 14 BUN 18 H Creatinine 0.6 L Est GFR ( Amer) > 60 Est GFR (Non-Af Amer) > 60 Random Glucose 87 Calcium 8.5 Vitamin B12 806 Thyroxine (T4) 4.88 L Total T3 0.846 L Assessment & Plan (1) Pneumonia Status: Deleted (2) TIA (transient ischemic attack) Status: Acute (3) Gout of ankle Status: Acute (4) Cervical radiculopathy Status: Acute (5) Radiculopathy of lumbosacral region Status: Acute (6) 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
[2016-06-02 01:05] LABS: FOLATE > 20.0 ng/mL
--- NOTE | 2016-06-02 07:58 | CP.PCM.PN ---
Subjective - Date & Time of Evaluation Date of Evaluation: 06/02/16 Time of Evaluation: 07:58 - Subjective Subjective: pt seen and examined at bedside. No acute events overnight. Pt reports back pain secondary to hernias was causing her pain overnight and had difficulty sleeping. OOB/ambulating with mild lightheadedness. Left hand numbness unchanged but pt reports this is chronic. Urinating without symptoms. Denies cough. No new medical complaints. Denies fever/chills, headaches, changes in vision, CP/SOB/Palpitations, N/V/D/C, urinary symptoms, weakness. Objective - Vital Signs/Intake and Output Vital Signs (last 24 hours): Temp Pulse Resp BP Pulse Ox 97.4 F L 52 L 18 88/56 L 98 06/02/16 04:54 06/02/16 04:54 06/02/16 04:54 06/02/16 04:54 06/02/16 04:54 - Medications Medications: Current Medications Aspirin (Ecotrin) 81 mg PO DAILY [facility] Last Admin: 06/01/16 09:15 Dose: 81 mg Atorvastatin Calcium (Lipitor) 40 mg PO DAILY [facility] Last Admin: 06/01/16 09:15 Dose: 40 mg Cyclobenzaprine HCl (Flexeril) 10 mg PO TID PRN PRN Reason: Muscle spasm Darunavir (Prezista) 800 mg PO [facility] Last Admin: 06/01/16 21:46 Dose: 800 mg Duloxetine HCl (Cymbalta) 60 mg PO DAILY [facility] Last Admin: 06/01/16 09:14 Dose: 60 mg Emtricitabine/Tenofovir (Truvada 200 Mg-300 Mg) 1 tab PO HS [facility] Last Admin: 06/01/16 21:46 Dose: 1 tab Enalapril Maleate (Vasotec) 5 mg PO DAILY [facility] Last Admin: 06/01/16 09:16 Dose: 5 mg Enoxaparin Sodium (Lovenox) 40 mg SC DAILY [facility] PRN Reason: Protocol Last Admin: 06/01/16 09:15 Dose: 40 mg Gabapentin (Neurontin) 800 mg PO TID [facility] Last Admin: 06/01/16 16:02 Dose: 800 mg Ceftriaxone Sodium 1 gm/ (Sodium Chloride) 100 mls @ 100 mls/hr IVPB DAILY [facility] Last Admin: 06/01/16 16:03 Dose: 100 mls/hr Nicotine (Nicoderm Cq) 1 patch TD DAILY [facility] Last Admin: 06/01/16 09:15 Dose: 1 patch Quetiapine Fumarate (Seroquel) 100 mg PO HS [facility] Last Admin: 06/01/16 21:46 Dose: 100 mg Ritonavir (Norvir) 100 mg PO HS [facility] Last Admin: 06/01/16 21:46 Dose: 100 mg Tramadol HCl (Ultram) 50 mg PO BID PRN PRN Reason: Pain, severe (8-10) Last Admin: 06/01/16 21:55 Dose: 50 mg - Labs Labs: 06/01/16 04:10 06/01/16 04:10 PT 10.3 SECONDS (9.6-11.2) 05/31/16 17:05 INR 0.99 (0.92-1.08) 05/31/16 17:05 APTT 26.4 SECONDS (23.3-32.5) 05/31/16 17:05 - Constitutional Appears: Non-toxic, No Acute Distress - Eye Exam Eye Exam: EOMI. absent: Nystagmus Pupil Exam: NORMAL ACCOMODATION, PERRL - ENT Exam ENT Exam: Mucous Membranes Moist - Neck Exam Neck Exam: Full ROM, Normal Inspection - Respiratory Exam Respiratory Exam: Clear to Ausculation Bilateral, NORMAL BREATHING PATTERN. absent: Rales, Rhonchi, Wheezes - Cardiovascular Exam Cardiovascular Exam: Irregular Rhythm. absent: Tachycardia, Gallop, JVD, Rubs, Murmur - GI/Abdominal Exam GI & Abdominal Exam: Soft, Normal Bowel Sounds. absent: Tenderness - Extremities Exam Extremities Exam: Full ROM, Normal Inspection. absent: Calf Tenderness - Neurological Exam Neurological Exam: Alert, Awake, CN II-XII Intact, Oriented x3. absent: Altered - Psychiatric Exam Psychiatric exam: Normal Affect, Normal Mood Assessment and Plan (1) TIA (transient ischemic attack) Assessment & Plan: Code stroke called in ED Admitted to [facility] Non-Contrast Head CT: no acute intracranial pathology. Brain MRI: no evidence of acute/subacute infarct, suboptimal study due to patients motion, questionable 6mm hypointense T2 well defined lesion at left cerebellum vs artifact. Few scattered hypointesive T2 and FLAIR signal white matter lesions suggestive but nonspecific for chronic microvascular lesions. Carotid Doppler: pending CBC: wnl CMP: wnl Troponin: negative x2 Coags: wnl Folate: wnl B12: wnl Given 325mg Aspirin started on Aggrenox BID Atorvastatin 40mg QD Neurology Consult appreciated PT/OT eval and tx Status: Acute (2) Urinary tract infection Assessment & Plan: -UA: large leukocyte esterase, 42 WBCs -day 3 of abx -3 doses of Rochephin Status: Acute (3) HIV infection, asymptomatic Assessment & Plan: Viral load: undetectable Last CD4+: 800 Continue with home medications Status: Chronic (4) Essential (primary) hypertension Assessment & Plan: continue with home medications Status: Acute (5) Bronchitis Assessment & Plan: -originally thought to be Pneumonia afebrile cough resolved as per pt CBC: 6.8>12.4/38.2<231 CXR: no evidence of acute pulmonary disease of significant interval change since previous exam. Given one dose of Rocephin and one dose of Zithromax in ED. Status: Acute (6) DVT prophylaxis Assessment & Plan: Lovenox 40mg SC QD Status: Acute
[2016-06-02] MEDS: Enoxaparin 40 mg Syringe SC SCH ×2 (09:47→09:57)
--- NOTE | 2016-06-02 11:37 | US ---
PROCEDURE: Duplex ultrasound of the carotid and vertebral arteries. HISTORY: TIA-like symptoms COMPARISON: None available. TECHNIQUE: Grayscale and duplex Doppler evaluation of the cervical carotid and vertebral arteries were performed. The common carotid, carotid bifurcations and cervical ICA and proximal ECA were evaluated. The vertebral arteries were evaluated for gross patency and direction. FINDINGS: There are calcified atherosclerotic plaques in bilateral carotid bulbs, left common carotid artery and left proximal internal carotid artery. RIGHT CAROTID ARTERIES: Common Carotid Artery: Normal. Maximal flow velocity of 78.1 cm/s. Carotid Bifurcation: Normal. Internal Carotid Artery:Normal. Maximal flow velocity of 101.1 cm/s. External Carotid Artery (proximal branches): Normal. Maximal flow velocity of 52.0 cm/s. ICA/CCA Ratio: 1.3 LEFT CAROTID ARTERIES: Common Carotid Artery: Normal. Maximal flow velocity of 99.5 cm/s. Carotid Bifurcation: Normal. Internal Carotid Artery:Normal. Maximal flow velocity of 93.0 cm/s. External Carotid Artery (proximal branches): Normal. Maximal flow velocity of 64.0 cm/s. ICA/CCA Ratio: 0.9 VERTEBRAL ARTERIES: Right Vertebral Artery: Patent. Antegrade flow. Left Vertebral Artery: Patent. Antegrade flow. OTHER FINDINGS: None. IMPRESSION: No evidence of hemodynamically significant stenosis.
[2016-06-02] MEDS ORDERED: Oxycodone/Acetaminophen 5/325 mg Tab PO STA (11:51)
[2016-06-02] MEDS: Oxycodone/Acetaminophen 5/325 mg Tab PO PRN ×2 (13:50→21:57)
[2016-06-02] MEDS: Aspirin-Dipyridamole 200-25 mg ER Cap PO SCH (17:06)
--- NOTE | 2016-06-02 17:36 | CARD ---
APPROVED REPORT EXAM: Two-dimensional and M-mode echocardiogram with Doppler and color Doppler. Other Information Quality : [employer] : INDICATION CVA/TIA 2D DIMENSIONS IVSd1.14 (0.7-1.1cm)LVDd4.49 (3.9-5.9cm) PWd0.98 (0.7-1.1cm)IVSs1.27 (0.8-1.2cm) LVDs3.59 (2.5-4.0cm)FS (%) 19.9 % PWs1.49 (0.8-1.2cm) M-Mode DIMENSIONS Left Atrium (MM)3.34 (2.5-4.0cm)IVSd1.27 (0.7-1.1cm) Aortic Root3.98 (2.2-3.7cm)LVDd4.67 (4.0-5.6cm) Aortic Cusp Exc.2.13 (1.5-2.0cm)PWd1.00 (0.7-1.1cm) IVSs1.80 cmFS (%) 34 % LVDs3.07 (2.0-3.8cm)PWs1.70 cm Aortic Valve AoV Peak Bnmtxhoq772.8cm/Nabil Peak GR.12mmHgLVOT Peak Bjekhoit238.7cm/s Mitral Valve MV E Ayqmmjqn81.0cm/sMV DECEL [id number] A Nikpjxnc00.1cm/s MV KTN79sjN/A ratio1.0MVA (PHT)5.38cm2 TDI Lateral E' Peak V9.13cm/sMedial E' Peak V5.21cm/sE/Lateral E'7.1 E/Medial E'12.5 Tricuspid Valve TR Peak Ijwduznj266xm/sRAP [id number] Peak Gr.19mmHg [id number] LEFT VENTRICLE The left ventricle is normal size. There is normal left ventricular wall thickness. Left ventricle systolic function is severely impaired. The Ejection Fraction is 20-25%. There is global hypokinesis Tissue Doppler imaging reveals abnormal left ventricular diastolic dysfunction. Transmitral Doppler flow pattern is Grade II-pseudonormal filling dynamics. No left ventricle thrombus noted on this study. There is no ventricular septal defect visualized. There is no left ventricular aneurysm. There is no mass noted in the left ventricle. RIGHT VENTRICLE The right ventricle is normal size. There is normal right ventricular wall thickness. The right ventricular systolic function is normal. ATRIA The left atrium is moderately dilated. The right atrium is moderately dilated. The interatrial septum is intact with no evidence for an atrial septal defect. AORTIC VALVE The aortic valve is normal in structure and function. No aortic regurgitation is present. There is no aortic valvular stenosis. There is no aortic valvular vegetation. MITRAL VALVE The mitral valve is normal in structure and function. There is no evidence of mitral valve prolapse. There is no mitral valve stenosis. Mitral regurgitation is mild. TRICUSPID VALVE The tricuspid valve is normal in structure and function. There is no tricuspid valve regurgitation noted. There is no tricuspid valve prolapse or vegetation. There is no tricuspid valve stenosis. PULMONIC VALVE The pulmonary valve is normal in structure and function. There is no pulmonic valvular regurgitation. There is no pulmonic valvular stenosis. GREAT VESSELS The aortic root is normal in size. The ascending aorta is normal in size. The IVC is normal in size and collapses >50% with inspiration. PERICARDIAL EFFUSION The pericardium appears normal. There is no pleural effusion. <Conclusion> Severely Reduced LV systolic function LVEF 20-25% Gobal Hypokinesis Mild Mitral Regurgitation
--- NOTE | 2016-06-02 18:18 | CARD ---
APPROVED REPORT EKG Measurement Heart [id number] <Conclusion> Sinus rhythm with frequent premature ventricular complexes in a pattern of bigeminy Nonspecific ST and T wave abnormality Abnormal ECG
--- NOTE | 2016-06-02 18:50 | CP.PCM.CON ---
History of Present Illness - History of Present Illness History of Present Illness: 61yo F with PMHx HIV, polio, chronic back pain d/t neuropathy, chronic foot pain, gout, HTN, HLD Smoker admitted for TIA, RML PNA, and arrythmia. Cardiology consult called for PVC's and Echo Echo: Global Hypokinesia EF: 20 - 25% MR 05/31 EKG: Bigeminy pt has had this in the past never followed up with veterans' coordinator Telemetry : occasional isolated PVC's Troponin: neg BNP: normal Pt remains asymptomatic with PVC's Past Patient History - Infectious Disease Hx of Infectious Diseases: None - Tetanus Immunizations Tetanus Immunization: Unknown - Past Medical History & Family History Past Medical History?: Yes - Past Social History Smoking Status: Heavy Smoker > 10 Cigarettes Daily - CARDIAC Hx Cardiac Disorders: Yes Hx Hypercholesterolemia: Yes Hx Hypertension: Yes Other/Comment: irregularly irregular heartbeat (x4 years ago) - PULMONARY Hx Respiratory Disorders: No - NEUROLOGICAL Hx Neurological Disorder: Yes (Neuropathy ) - HEENT Hx HEENT Problems: Yes Other/Comment: Use contact lenses - RENAL Hx Chronic Kidney Disease: No - ENDOCRINE/METABOLIC Hx Endocrine Disorders: No - HEMATOLOGICAL/ONCOLOGICAL Hx Blood Disorders: Yes Hx Human Immunodeficiency Virus (HIV): Yes - INTEGUMENTARY Hx Dermatological Problems: No - MUSCULOSKELETAL/RHEUMATOLOGICAL Hx Musculoskeletal Disorders: Yes Hx Arthritis: Yes (chronic, left knee) Hx Back Pain: Yes (chronic, low back) Hx Falls: No Hx Herniated Disk: Yes (x3) Hx Osteoporosis: Yes - GASTROINTESTINAL Hx Gastrointestinal Disorders: No - GENITOURINARY/GYNECOLOGICAL Hx Genitourinary Disorders: No - PSYCHIATRIC Hx Psychophysiologic Disorder: No Hx Substance Use: No - SURGICAL HISTORY Hx Surgeries: Yes Hx Section: Yes (x1) Hx Orthopedic Surgery: Yes - ANESTHESIA Hx Anesthesia: Yes Hx Anesthesia Reactions: No Hx Malignant Hyperthermia: No Meds Allergies/Adverse Reactions: Allergies Allergy/AdvReac Type Severity Reaction Status Date / Time No Known Allergies Allergy Verified 12/19/15 19:37 - Medications Medications: Current Medications Atorvastatin Calcium (Lipitor) 40 mg PO DAILY [facility] Last Admin: 06/02/16 09:47 Dose: 40 mg Cyclobenzaprine HCl (Flexeril) 10 mg PO TID PRN PRN Reason: Muscle spasm Last Admin: 06/02/16 09:44 Dose: 10 mg Darunavir (Prezista) 800 mg PO HS [facility] Last Admin: 06/01/16 21:46 Dose: 800 mg Dipyridamole/Aspirin (Aggrenox 25-200 Mg) 1 ea PO BID [facility] Last Admin: 06/02/16 17:06 Dose: 1 ea Duloxetine HCl (Cymbalta) 60 mg PO DAILY [facility] Last Admin: 06/02/16 09:47 Dose: 60 mg Emtricitabine/Tenofovir (Truvada 200 Mg-300 Mg) 1 tab PO HS [facility] Last Admin: 06/01/16 21:46 Dose: 1 tab Enalapril Maleate (Vasotec) 5 mg PO DAILY [facility] Last Admin: 06/02/16 11:39 Dose: Not Given Enoxaparin Sodium (Lovenox) 40 mg SC DAILY [facility] PRN Reason: Protocol Last Admin: 06/02/16 09:57 Dose: Not Given Gabapentin (Neurontin) 800 mg PO TID [facility] Last Admin: 06/02/16 17:07 Dose: 800 mg Ceftriaxone Sodium 1 gm/ (Sodium Chloride) 100 mls @ 100 mls/hr IVPB DAILY [facility] Last Admin: 06/02/16 09:48 Dose: 100 mls/hr Nicotine (Nicoderm Cq) 1 patch TD DAILY [facility] Last Admin: 06/02/16 09:46 Dose: 1 patch Oxycodone/Acetaminophen (Percocet 5/325 Mg Tab) 1 tab PO Q6 PRN PRN Reason: Pain, severe (8-10) Stop: 06/05/16 12:07 Last Admin: 06/02/16 13:50 Dose: 1 tab Quetiapine Fumarate (Seroquel) 100 mg PO [facility] Last Admin: 06/01/16 21:46 Dose: 100 mg Ritonavir (Norvir) 100 mg PO HS [facility] Last Admin: 06/01/16 21:46 Dose: 100 mg Physical Exam - Constitutional Appears: No Acute Distress - Respiratory Exam Respiratory Exam: NORMAL BREATHING PATTERN - Cardiovascular Exam Cardiovascular Exam: REGULAR RHYTHM Results - Vital Signs Recent Vital Signs: Last Vital Signs Temp 98.4 F 06/02/16 16:00 Pulse 77 06/02/16 16:00 Resp 18 06/02/16 16:00 BP 131/76 06/02/16 16:00 Pulse Ox 97 06/02/16 16:00 - Labs Result Diagrams: 06/01/16 04:10 06/01/16 04:10 Labs: Laboratory Results - last 24 hr 06/01/16 06/02/16 09:02 06:40 Uric Acid 5.6 Folate > 20.0 Assessment & Plan (1) TIA (transient ischemic attack) Status: Acute (2) Arrhythmia Assessment and Plan: PVC's occur as unifocal beats and pt is asymptomatic I would prefer not to treat at this time Status: Chronic (3) Essential (primary) hypertension Status: Acute (4) HIV infection, asymptomatic Status: Chronic
[2016-06-02] MEDS: Emtricitabine-Tenofovir 200 mg-300 mg Tab PO SCH (21:42)
--- NOTE | 2016-06-03 01:40 | CP.PCM.PN ---
Subjective - Date & Time of Evaluation Date of Evaluation: 06/02/16 Time of Evaluation: 17:00 - Subjective Subjective: She is worried about herself She admits having anxiety and feels depressed at times because of her HIV infection Objective - Vital Signs/Intake and Output Vital Signs (last 24 hours): Temp Pulse Resp BP Pulse Ox 98.1 F 85 20 110/63 98 06/02/16 23:47 06/02/16 23:47 06/02/16 23:47 06/02/16 23:47 06/02/16 23:47 - Medications Medications: Current Medications Atorvastatin Calcium (Lipitor) 40 mg PO DAILY [facility] Last Admin: 06/02/16 09:47 Dose: 40 mg Cyclobenzaprine HCl (Flexeril) 10 mg PO TID PRN PRN Reason: Muscle spasm Last Admin: 06/02/16 09:44 Dose: 10 mg Darunavir (Prezista) 800 mg PO HS [facility] Last Admin: 06/02/16 21:41 Dose: 800 mg Dipyridamole/Aspirin (Aggrenox 25-200 Mg) 1 ea PO BID [facility] Last Admin: 06/02/16 17:06 Dose: 1 ea Duloxetine HCl (Cymbalta) 60 mg PO DAILY [facility] Last Admin: 06/02/16 09:47 Dose: 60 mg Emtricitabine/Tenofovir (Truvada 200 Mg-300 Mg) 1 tab PO HS [facility] Last Admin: 06/02/16 21:42 Dose: 1 tab Enalapril Maleate (Vasotec) 5 mg PO DAILY [facility] Last Admin: 06/02/16 11:39 Dose: Not Given Enoxaparin Sodium (Lovenox) 40 mg SC DAILY [facility] PRN Reason: Protocol Last Admin: 06/02/16 09:57 Dose: Not Given Gabapentin (Neurontin) 800 mg PO TID [facility] Last Admin: 06/02/16 17:07 Dose: 800 mg Ceftriaxone Sodium 1 gm/ (Sodium Chloride) 100 mls @ 100 mls/hr IVPB DAILY [facility] Last Admin: 06/02/16 09:48 Dose: 100 mls/hr Nicotine (Nicoderm Cq) 1 patch TD DAILY [facility] Last Admin: 06/02/16 09:46 Dose: 1 patch Oxycodone/Acetaminophen (Percocet 5/325 Mg Tab) 1 tab PO Q6 PRN PRN Reason: Pain, severe (8-10) Stop: 06/05/16 12:07 Last Admin: 06/02/16 21:57 Dose: 1 tab Quetiapine Fumarate (Seroquel) 100 mg PO HS [facility] Last Admin: 06/02/16 21:41 Dose: 100 mg Ritonavir (Norvir) 100 mg PO HS [facility] Last Admin: 06/02/16 21:41 Dose: 100 mg - Labs Labs: 06/01/16 04:10 06/01/16 04:10 PT 10.3 SECONDS (9.6-11.2) 05/31/16 17:05 INR 0.99 (0.92-1.08) 05/31/16 17:05 APTT 26.4 SECONDS (23.3-32.5) 05/31/16 17:05 Assessment and Plan (1) Pneumonia Status: Deleted (2) TIA (transient ischemic attack) Status: Acute (3) Gout of ankle Status: Acute (4) Cervical radiculopathy Status: Acute (5) Radiculopathy of lumbosacral region Status: Acute (6) 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
[2016-06-03 04:43] VITALS: RESP 18
[2016-06-03 07:55] VITALS: O2SAT 98
[2016-06-03] MEDS: Aspirin-Dipyridamole 200-25 mg ER Cap PO SCH (08:48)
[2016-06-03] MEDS: Enoxaparin 40 mg Syringe SC SCH (08:55)
[2016-06-03 12:29] VITALS: BP 132/62; PULSE 59; TEMP 98.4
--- NOTE | 2016-06-03 12:58 | CP.PCM.DIS ---
Provider - Provider Date of Admission: 05/31/16 18:52 Attending physician: Sadie Matthews MD Primary care physician: Anyi Ashford MD Consults: Neuro - Margie Cardio - Costomiris Time Spent in preparation of Discharge (in minutes): 30 Diagnosis - Discharge Diagnosis (1) TIA (transient ischemic attack) Status: Resolved (2) Systolic heart failure Status: Chronic Comment: asymptomatic, new diagnosis (3) PVC (premature ventricular contraction) Status: Acute (4) Urinary tract infection Status: Resolved (5) Bronchitis Status: Resolved Hospital Course - Lab Results Lab Results: Most Recent Lab Values WBC 6.8 K/uL (4.8-10.8) 06/01/16 04:10 RBC 3.84 Mil/uL (3.80-5.20) 06/01/16 04:10 Hgb 12.4 g/dL (12.0-16.0) 06/01/16 04:10 Hct 38.3 % (34.0-47.0) 06/01/16 04:10 MCV 99.8 fl (81.0-99.0) H 06/01/16 04:10 MCH 32.3 pg (27.0-31.0) H 06/01/16 04:10 MCHC 32.4 g/dL (33.0-37.0) L 06/01/16 04:10 RDW 15.5 % (11.5-14.5) H 06/01/16 04:10 Plt Count 231 K/uL (130-400) 06/01/16 04:10 MPV 8.9 fl (7.2-11.7) 06/01/16 04:10 Neut % (Auto) 50.0 % (50.0-75.0) 06/01/16 04:10 Lymph % (Auto) 33.4 % (20.0-40.0) 06/01/16 04:10 [place] % (Auto) 10.8 % (0.0-10.0) H 06/01/16 04:10 Eos % (Auto) 4.7 % (0.0-4.0) H 06/01/16 04:10 Baso % (Auto) 1.1 % (0.0-2.0) 06/01/16 04:10 Neut # 3.4 K/uL (1.8-7.0) 06/01/16 04:10 Lymph # 2.3 K/uL (1.0-4.3) 06/01/16 04:10 [place] # 0.7 K/uL (0.0-0.8) 06/01/16 04:10 Eos # 0.3 K/uL (0.0-0.7) 06/01/16 04:10 Baso # 0.1 K/uL (0.0-0.2) 06/01/16 04:10 ESR 11 mm/hr (0-30) 06/03/16 05:53 PT 10.3 SECONDS (9.6-11.2) 05/31/16 17:05 INR 0.99 (0.92-1.08) 05/31/16 17:05 APTT 26.4 SECONDS (23.3-32.5) 05/31/16 17:05 Sodium 143 mmol/l (132-148) 06/01/16 04:10 Potassium 3.9 MMOL/L (3.6-5.0) 06/01/16 04:10 Chloride 107 mmol/L (98-107) 06/01/16 04:10 Carbon Dioxide 26 mmol/L (22-30) 06/01/16 04:10 Anion Gap 14 (10-20) 06/01/16 04:10 BUN 18 mg/dl (7-17) H 06/01/16 04:10 Creatinine 0.6 mg/dL (0.7-1.2) L 06/01/16 04:10 Est GFR ( Amer) > 60 06/01/16 04:10 Est GFR (Non-Af Amer) > 60 06/01/16 04:10 POC Glucose (mg/dL) 100 mg/dL (65-110) 05/31/16 16:53 Random Glucose 87 mg/dL (65-105) 06/01/16 04:10 Hemoglobin A1c 6.1 % (4.2-6.5) 05/31/16 17:05 Uric Acid 5.6 mg/Dl (2.2-7.5) 06/02/16 06:40 Calcium 8.5 mg/dL (8.4-10.2) 06/01/16 04:10 Phosphorus 4.0 mg/dl (2.5-4.5) 05/31/16 17:05 Magnesium 2.1 MG/DL (1.6-2.3) 05/31/16 17:05 Total Bilirubin 0.3 mg/dl (0.2-1.3) 05/31/16 17:05 AST 24 U/L (14-36) 05/31/16 17:05 ALT 22 U/L (9-52) 05/31/16 17:05 Alkaline Phosphatase 79 U/L (38-126) 05/31/16 17:05 Troponin I < 0.0120 ng/mL (0.00-0.120) 05/31/16 17:05 NT-Pro-B Natriuret Pep 106 pg/ml (0-900) 05/31/16 17:05 Total Protein 6.8 G/DL (6.3-8.2) 05/31/16 17:05 Albumin 3.7 g/dL (3.5-5.0) 05/31/16 17:05 Globulin 3.1 gm/dL (2.2-3.9) 05/31/16 17:05 Albumin/Globulin Ratio 1.2 (1.0-2.1) 05/31/16 17:05 Triglycerides 131 mg/DL (0-149) 05/31/16 17:05 Cholesterol 203 mg/dL (0-199) H 05/31/16 17:05 LDL Cholesterol Direct 110 mg/dL (0-129) 05/31/16 17:05 HDL Cholesterol 69 MG/DL (30-70) 05/31/16 17:05 Vitamin B12 728 pg/mL (239-931) 06/03/16 05:53 Folate > 20.0 ng/mL 06/01/16 09:02 Thyroxine (T4) 4.88 ug/dl (5.5-11.0) L 06/01/16 04:10 Total T3 0.846 nmol/L (1.49-2.60) L 06/01/16 04:10 TSH 3rd Generation 0.02 mIU/ML (0.46-4.68) L 05/31/16 17:05 Urine Color Yellow (YELLOW) 05/31/16 20:10 Urine Clarity Slighty-cloudy (Clear) 05/31/16 20:10 Urine pH 7.0 (5.0-8.0) 05/31/16 20:10 Ur Specific [place] 1.014 (1.003-1.030) 05/31/16 20:10 Urine Protein Negative mg/dL (NEGATIVE) 05/31/16 20:10 Urine Glucose (UA) Neg mg/dL (Normal) 05/31/16 20:10 Urine Ketones Negative mg/dL (NEGATIVE) 05/31/16 20:10 Urine Blood Negative (NEGATIVE) 05/31/16 20:10 Urine Nitrate Negative (NEGATIVE) 05/31/16 20:10 Urine Bilirubin Negative (NEGATIVE) 05/31/16 20:10 Urine Urobilinogen 0.2-1.0 mg/dL (0.2-1.0) 05/31/16 20:10 Ur Leukocyte Esterase Large Lauren/uL (Negative) 05/31/16 20:10 Urine RBC (Auto) 5 /hpf (0-3) H 05/31/16 20:10 Urine Microscopic WBC 42 /hpf (0-5) H 05/31/16 20:10 Ur Squamous Epith Cells < 1 /hpf (0-5) 05/31/16 20:10 Amorphous Sediment Occ /ul (<OCC) H 05/31/16 20:10 Urine Yeast (Budding) Mod /hpf (NEGATIVE) H 05/31/16 20:10 Blood Type B POSITIVE 05/31/16 17:05 Blood Type Confirm B POSITIVE 05/31/16 17:20 Antibody Screen Negative 05/31/16 17:05 BBK History Checked No verified bt 05/31/16 17:05 - Hospital Course Hospital Course: 61 yo F with PMH HIV, polio, chronic back pain and peripheral neuropathy, chronic foot pain, gout, HTN, HLD admitted for TIA. TIA symptoms had resolved upon admission. Neuro consulted - Dr. Hanson. Head CT, carotids, brain MRI showed no acute pathology. Pt's home med aspirin changed to Aggrenox BID and statin therapy was also added on. EEG, C-spine MRI and Lumbar MRI ordered by Neuro; studies were completed, but not reported as of yet. PMD, Dr. Ashford, aware and will f/u outpatient. Pt also noted to have arrythmia- PVCs in bigeminy pattern. Cardio consulted, Dr. Hansen, recommended no further treatment at this time. ECHO done which shows EF of 20-25% with global hypokinesis. Pt made aware of diagnosis. On MAUREEN-inhibitor from home, will continue. No beta manuela or K+ sparing diuretic added on for now, as pt has had low BP's while inhouse. Discussed in detail with patient need for f/u with cardio as outpatient to r/o ischemic cause of CHF. No symptoms of CHF present. Strict ER precautions given. Smoking cessation extensively counseled and pt also discharged with Nicotine patch and gum. Pt is currently stable, feeling well, and denies any complaints. Attempted to make appt for pt to f/u with PMD. Called scheduling person for Heladio Ilya on 06/02/16, but unable to reach. ECW phone note sent to have pt scheduled for appt with PMD this week, and also advised pt to call Sunday morning for appt. Pt verbalized understanding of all above instructions. Discharge Exam - Head Exam Head Exam: ATRAUMATIC, NORMOCEPHALIC - Eye Exam Eye Exam: Normal appearance - ENT Exam ENT Exam: Mucous Membranes Moist - Respiratory Exam Respiratory Exam: Clear to PA & Lateral, NORMAL BREATHING PATTERN. absent: Rales, Rhonchi, Wheezes, Respiratory Distress, Stridor - Cardiovascular Exam Cardiovascular Exam: Irregular Rhythm. absent: Diastolic murmur, Gallop, Systolic Murmur - GI/Abdominal Exam GI & Abdominal Exam: Normal Bowel Sounds, Soft. absent: Tenderness - Extremities Exam Additional comments: no calf tenderness or pedal edema - Neurological Exam Neurological exam: Alert, Oriented x3 - Skin Skin Exam: Normal Color Discharge Plan - Discharge Medications Prescriptions: Aspirin/Dipyridamole [Aggrenox 25-200 mg] 1 ea PO BID #60 cap Atorvastatin [Lipitor] 40 mg PO HS #30 tab Nicotine 21 mg/24 hr [Nicoderm Cq] 1 patch TD DAILY #30 patch Nicotine Gum [Nicorette Gum] 2 mg PO Q2H #60 gum oxyCODONE/Acetaminophen [Percocet 5/325 mg Tab] 1 ea PO Q4H PRN #10 tab PRN Reason: Pain, Severe (8-10) valACYclovir [Valtrex] 1 gm PO DAILY #30 tab - Follow Up Plan Condition: STABLE Disposition: HOME/ ROUTINE Instructions: Transient Ischemic Attack (DC), Transient Ischemic Attack (GEN), Heart Failure (DC), Heart Failure (GEN), How to Stop Smoking (DC), Cigarette Smoking and Your Health (GEN), Hypertension (DC), Hypertension (GEN), Back Pain (GEN) Additional Instructions: Take medications as directed. Call Sunday morning for appointment with primary care doctor, Dr. Ashford. We have also sent a message to the clinic regarding your need for an appointment. Follow up with cardiology as discussed. Return if any chest pain, shortness of breath, leg swelling, or any worsening symptoms develop. Referrals: Clyde Jung MD [Staff Provider] - Anyi Ashfrod MD [Provisional Staff] - Elkin Osman MD [Staff Provider] -
--- NOTE | 2016-06-03 14:40 | MRI ---
PROCEDURE: MR CERVICAL SPINE WITHOUT CONTRAST HISTORY: Radiculopathy, HIV positive COMPARISON: None available. TECHNIQUE: Multiecho multiplanar sequences were performed through the cervical spine without the use of intravenous contrast. FINDINGS: There is normal cervical lordosis. There is normal alignment of the cervical vertebral bodies. There is no acute fracture or spondylolisthesis. Bone marrow signal is within normal limits. The craniocervical junction is normal. The atlantoaxial joint is normal. The cervical cord is normal in contour, caliber and has normal intrinsic signal. The paraspinous soft tissues are normal. C2-C3: No disc herniation, spinal canal stenosis or neural foraminal narrowing. C3-C4: Disc osteophyte complex and moderate left facet arthropathy result in mild left neural foraminal stenosis. No central spinal canal stenosis. C4-C5: Disc osteophyte complex and moderate bilateral facet arthropathy result in moderate right and mild left neural foraminal stenosis. No central spinal canal stenosis. C5-C6: Broad-based disc osteophyte complex with asymmetric left uncovertebral joint hypertrophy result in mild left neural foraminal stenosis. No spinal canal stenosis. C6-C7: No disc herniation, spinal canal stenosis or neural foraminal narrowing. C7-T1: No disc herniation, spinal canal stenosis or neural foraminal narrowing. OTHER FINDINGS: None. IMPRESSION: Mild degenerative disc disease from C3-4 to the C5-6 with mild to moderate neural foraminal stenosis. No central spinal canal stenosis.
--- NOTE | 2016-06-03 15:08 | MRI ---
PROCEDURE: MR LUMBAR SPINE WITHOUT CONTRAST HISTORY: Radiculopathy COMPARISON: 06/03/2015 TECHNIQUE: Multiecho multiplanar sequences were performed through the lumbar spine without the use of intravenous contrast. FINDINGS: There is normal alignment of the lumbar vertebral bodies. Lumbar lordosis is maintained. Vertebral bodies are normal in height. There is no acute fracture, spondylolysis or spondylolisthesis. Bone marrow signal is within normal limits. The conus medullaris terminates at a normal level and the nerve roots of cauda equina are normal. The paraspinous soft tissues are normal. Imaged portion of the retroperitoneum is within normal limits. T12-L1: No disc herniation, spinal canal stenosis or neural foraminal narrowing. L1-2: No disc herniation, spinal canal stenosis or neural foraminal narrowing. L2-3: No disc herniation, spinal canal stenosis or neural foraminal narrowing. L3-4: There is interval progression of central and left paracentral broad-based disc protrusion which indents the ventral thecal sac without central spinal canal stenosis. Also noted is mild bilateral facet arthropathy and mild neural foraminal stenosis. L4-5: Posterior disc bulge without central spinal canal stenosis. Mild bilateral facet arthropathy contribute to mild neural foraminal stenosis. L5-S1: No significant interval change in central and left paracentral disc protrusion without spinal canal stenosis. Mild bilateral facet arthropathy contribute to mild neural foraminal stenosis. OTHER FINDINGS: None. IMPRESSION: 1. Interval progression of central and left paracentral broad-based disc protrusion at L3-4 which indents the ventral thecal sac without central spinal canal stenosis. 2. No significant interval change in central and left paracentral disc protrusion at L5-S1 without central spinal canal stenosis.
--- NOTE | 2016-06-03 21:10 | CP.PCM.PN ---
Subjective - Date & Time of Evaluation Date of Evaluation: 06/03/16 Time of Evaluation: 11:30 - Subjective Subjective: IMPRESSION of MRI of the LS Spine: 1. Interval progression of central and left paracentral broad-based disc protrusion at L3-4 which indents the ventral thecal sac without central spinal canal stenosis. 2. No significant interval change in central and left paracentral disc protrusion at L5-S1 without central spinal canal stenosis. Abnormal MRI C Spine showing foraminal stenosis at C3 to C6: This might contribute to her Peripheral tingling and numbness in both UEs and LEs. She did well and is discharged home safely. 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
--- NOTE | 2016-06-08 05:42 | EEG ---
DATE: 06/08/2016 PROCEDURE: EEG. INDICATION: The record is obtained for a history of rule out CVA. The patient has a history of radi culopathy and peripheral neuropathy and she has tingling and numbness peripherally and she has anxiet y. FINDINGS: The record was obtained while the patient was awake. The record was symmetrically equal o n both sides with velocity of 8 cycles per second. The waves are fairly formed, fairly organized wit h posterior distribution, moderate in amplitude, reactive to eye opening by attenuation. There were no abnormal discharges. No spike, polyspike, no sharp wave, no focal slowing, no paroxysmal discharg e. The record did not show any changes with photic stimulation. The hyperventilation was omitted. There are eye movement artifact, electrode artifact and muscle movement artifacts. IMPRESSION: In sum, this is a normal awake EEG. Clinical correlation is recommended. Varinder Hanson MD cc: [id number] TT: 06/08/2016 05:41:55 Confirmation # [id number] Dictation # [id number] mariella
== END 2016-06-03 13:30 | disposition home or self-care (01) | DRG 532 ==
LOC: H.ER 16:44 → H.ERHOLD 18:52 → H.TEL 20:41
PROVIDERS: ADMIT Family Medicine; ATTEND Family Medicine
DX: G45.9 Transient cerebral ischemic attack, unspecified (principal); I50.20 Unspecified systolic (congestive) heart failure; I13.0 Hypertensive heart and chronic kidney disease with heart failure and stage 1 through stage 4 chronic kidney disease, or unspecified chronic kidney disease; N39.0 Urinary tract infection, site not specified; N18.9 Chronic kidney disease, unspecified; J40 Bronchitis, not specified as acute or chronic; E03.9 Hypothyroidism, unspecified; I49.9 Cardiac arrhythmia, unspecified; F17.210 Nicotine dependence, cigarettes, uncomplicated; M10.9 Gout, unspecified; M51.26 Other intervertebral disc displacement, lumbar region; M54.12 Radiculopathy, cervical region; M51.17 Intervertebral disc disorders with radiculopathy, lumbosacral region; E78.00 Pure hypercholesterolemia, unspecified; I49.3 Ventricular premature depolarization; Z79.82 Long term (current) use of aspirin; M81.0 Age-related osteoporosis without current pathological fracture; E78.5 Hyperlipidemia, unspecified; F41.9 Anxiety disorder, unspecified; G89.29 Other chronic pain

== ENCOUNTER 2016-08-01 12:01 | Emergency (ER) | payer MEDICAID ==
[2016-08-01 12:02] VITALS: BMI 25.7
[2016-08-01 12:39] VITALS: BP 120/76; PULSE 74; RESP 18; TEMP 98; O2SAT 99
--- NOTE | 2016-08-01 13:50 | ED PDOC ---
Lower Extremity Pain/Injury Time Seen by Provider: 08/01/16 13:02 Chief Complaint (Nursing): Back Pain Chief Complaint (Provider): Left Knee Pain/Back Pain History Per: Patient History/Exam Limitations: no limitations Onset/Duration Of Symptoms: Persistent Current Symptoms Are (Timing): Still Present Additional Complaint(s): Kylee Caicedo is a 61 year old female with a history of arthritis that presents to the ED with a chief complaint of left knee pain due to arthritis as well as chronic back pain due to herniated discs,both of which have been worse than usual for the past two days. Patient states that she has been taking Tramadol for her pain and that her dosage was increased to 50 mg, but that she is currently having a reaction it it that she cannot describe. She also reports that she took a Percocet last night left over from a previous prescription, which did help to relieve her pain. Of Note: Patient has numerous Tramadol prescriptions from numerous providers. The last prescription of hers was filled on July 24 for 30 tabs. Past Medical History Reviewed: Historical Data, Nursing Documentation, Vital Signs Vital Signs: Last Vital Signs Temp 98 F 08/01/16 12:35 Pulse 74 08/01/16 12:35 Resp 18 08/01/16 12:35 BP 120/76 08/01/16 12:35 Pulse Ox 99 08/01/16 12:35 - Medical History PMH: Arthritis (chronic, left knee), Back Problems (herniated discs x3 (low back )), HIV, HTN, Hypercholesterolemia, Hyperlipidemia, Osteoporosis Denies: Diabetes (patient denies), Chronic Kidney Disease - Surgical History Surgical History: (x1) - Family History Family History: States: Unknown Family Hx, Diabetes, Hypertension - Home Medications Home Medications: Ambulatory Orders Medication Instructions Recorded DULoxetine [Cymbalta] 60 mg PO DAILY 03/31/16 Darunavir [Prezista] 800 mg PO HS 03/31/16 Emtricitabine/Tenofovir Diso 1 tab PO HS 03/31/16 [Truvada 200 MG-300 MG] Enalapril Maleate [Vasotec] 5 mg PO DAILY 03/31/16 Ritonavir [Norvir] 100 mg PO HS 03/31/16 Cyclobenzaprine [Flexeril] 10 mg PO TID PRN #20 tab 04/14/16 Ascorbic Acid [Vitamin C] 1 tab PO DAILY 05/31/16 Gabapentin [Neurontin] 800 mg PO TID 05/31/16 QUEtiapine [Seroquel] 100 mg PO HS 05/31/16 traMADol [Ultram] 50 mg PO BID PRN 05/31/16 Aspirin/Dipyridamole [Aggrenox 1 ea PO BID #60 cap 06/03/16 25-200 mg] Atorvastatin [Lipitor] 40 mg PO HS #30 tab 06/03/16 Nicotine 21 mg/24 hr [Nicoderm Cq] 1 patch TD DAILY #30 patch 06/03/16 Nicotine Gum [Nicorette Gum] 2 mg PO Q2H #60 gum 06/03/16 oxyCODONE/Acetaminophen [Percocet 1 ea PO Q4H PRN #10 tab 06/03/16 5/325 mg Tab] valACYclovir [Valtrex] 1 gm PO DAILY #30 tab 06/03/16 oxyCODONE/Acetaminophen [Percocet 1 ea PO Q6H PRN #5 tab 08/01/16 5/325 mg Tab] - Allergies Allergies/Adverse Reactions: Allergies Allergy/AdvReac Type Severity Reaction Status Date / Time No Known Allergies Allergy Verified 08/01/16 12:35 Review of Systems Musculoskeletal: Positive for: Back Pain (chronics), Leg Pain (left knee pain due to arthritis) Physical Exam - Reviewed Nursing Documentation Reviewed: Yes Vital Signs Reviewed: Yes - Physical Exam Appears: Positive for: Non-toxic, No Acute Distress Head Exam: Positive for: ATRAUMATIC, NORMOCEPHALIC Skin: Positive for: Normal Color, Warm Cardiovascular/Chest: Positive for: Regular Rate, Rhythm. Negative for: Edema, Murmur Respiratory: Positive for: Normal Breath Sounds. Negative for: Respiratory Distress Back: Positive for: Normal Inspection (no midline tenderness) Extremity: Positive for: Normal ROM (ful ROM in left knee). Negative for: Pedal Edema Neurologic/Psych: Positive for: Alert, Oriented. Negative for: Motor/Sensory Deficits - ECG O2 Sat by Pulse Oximetry: 99 (RA) Pulse Ox Interpretation: Normal Medical Decision Making Medical Decision Making: Impression: Left Knee Pain/Chronic Back Pain Plan: * Flexeril 10 mg PO * Toradol 30 mg IM * Reevaluation Pt reports feeling better on re-evaluation. PT requesting percocet. Discussed only 5 will be given and no additional Rx in the future. Pt states that she has referral for pain management. Scribe Attestation: Documented by Ana María Rodgers, acting as a scribe for Tiffanie Monteiro PA-C. Provider Scribe Attestation: All medical record entries made by the Scribe were at my direction and personally dictated by me. I have reviewed the chart and agree that the record accurately reflects my personal performance of the history, physical exam, medical decision making, and the department course for this patient. I have also personally directed, reviewed, and agree with the discharge instructions and disposition. Disposition - Clinical Impression Clinical Impression: Chronic back pain - Patient ED Disposition Is Patient to be Admitted: No - Disposition Disposition: Routine/Home Disposition Time: 14:03 Condition: GOOD Prescriptions: oxyCODONE/Acetaminophen [Percocet 5/325 mg Tab] 1 ea PO Q6H PRN #5 tab PRN Reason: Pain, Severe (8-10) Instructions: Chronic Pain (ED)
== END 2016-08-01 14:22 | disposition home or self-care (01) ==
LOC: H.ER 12:01
DX: M54.9 Dorsalgia, unspecified (principal); M25.562 Pain in left knee; G89.29 Other chronic pain; E78.00 Pure hypercholesterolemia, unspecified; I12.9 Hypertensive chronic kidney disease with stage 1 through stage 4 chronic kidney disease, or unspecified chronic kidney disease; Z79.82 Long term (current) use of aspirin; M81.0 Age-related osteoporosis without current pathological fracture

== ENCOUNTER 2016-11-02 13:54 | Emergency (ER) | payer MEDICAID ==
[2016-11-02 13:54] VITALS: BMI 19.8
[2016-11-02 14:07] VITALS: BP 128/75; PULSE 71; RESP 18; TEMP 98; O2SAT 99
[2016-11-02] MEDS ORDERED: Oxycodone/Acetaminophen 5/325 mg Tab PO STA (14:56)
--- NOTE | 2016-11-02 14:56 | ED PDOC ---
HPI: Eye Injury/Pain Time Seen by Provider: 11/02/16 14:23 Chief Complaint (Nursing): Eye Problem Chief Complaint (Provider): Bilateral Eye Pain History Per: Patient History/Exam Limitations: no limitations Onset/Duration Of Symptoms: Hrs (x2) Current Symptoms Are (Timing): Still Present Additional Complaint(s): Kylee Caicedo is a 61 year old female that presents to the ED with a chief complaint of bilateral burning eye pain and associated photophobia that she began to experience two hours prior to arrival in ED. Patient states that she had her contacts in her eyes upon the onset of her pain. Patient reports her left eye pain to be a 10 on a scale from 1-10, and her right eye pain to be an 8 on a scale from 1-10. She reports that she attempted to flush her eyes out with salt water in the event that something got into her eyes, but that it did not alleviate her pain, nor did any foreign objects come out of her eyes. She additionally complains of back pain, which she rates as a 3 on a scale of 1-10. Past Medical History Reviewed: Historical Data, Nursing Documentation, Vital Signs Vital Signs: Last Vital Signs Temp 98.0 F 11/02/16 14:03 Pulse 71 11/02/16 14:03 Resp 18 11/02/16 14:03 BP 128/75 11/02/16 14:03 Pulse Ox 99 11/02/16 14:03 - Medical History PMH: Arthritis (chronic, left knee), Back Problems (herniated discs x3 (low back )), HIV, HTN, Hypercholesterolemia, Hyperlipidemia, Osteoporosis Denies: Diabetes (patient denies), Chronic Kidney Disease - Surgical History Surgical History: (x1) - Family History Family History: States: Unknown Family Hx, Diabetes, Hypertension - Home Medications Home Medications: Ambulatory Orders Medication Instructions Recorded DULoxetine [Cymbalta] 60 mg PO DAILY 03/31/16 Darunavir [Prezista] 800 mg PO HS 03/31/16 Emtricitabine/Tenofovir Diso 1 tab PO HS 03/31/16 [Truvada 200 MG-300 MG] Enalapril Maleate [Vasotec] 5 mg PO DAILY 03/31/16 Ritonavir [Norvir] 100 mg PO HS 03/31/16 Cyclobenzaprine [Flexeril] 10 mg PO TID PRN #20 tab 04/14/16 Ascorbic Acid [Vitamin C] 1 tab PO DAILY 05/31/16 Gabapentin [Neurontin] 800 mg PO TID 05/31/16 QUEtiapine [Seroquel] 100 mg PO HS 05/31/16 traMADol [Ultram] 50 mg PO BID PRN 05/31/16 Aspirin/Dipyridamole [Aggrenox 1 ea PO BID #60 cap 06/03/16 25-200 mg] Atorvastatin [Lipitor] 40 mg PO HS #30 tab 06/03/16 Nicotine 21 mg/24 hr [Nicoderm Cq] 1 patch TD DAILY #30 patch 06/03/16 Nicotine Gum [Nicorette Gum] 2 mg PO Q2H #60 gum 06/03/16 oxyCODONE/Acetaminophen [Percocet 1 ea PO Q4H PRN #10 tab 06/03/16 5/325 mg Tab] valACYclovir [Valtrex] 1 gm PO DAILY #30 tab 06/03/16 oxyCODONE/Acetaminophen [Percocet 1 ea PO Q6H PRN #5 tab 08/01/16 5/325 mg Tab] Cyclobenzaprine [Cyclobenzaprine 10 mg PO BID #14 tab 09/19/16 HCl] Lidocaine 5% [Lidoderm] 1 patch TOP DAILY #7 patch 09/19/16 Naproxen [Naprosyn] 500 mg PO Q12 PRN #20 tablet 09/19/16 Polymyxin/Trimethoprim Sulfate 1 drop XX Q6H 10 Days bottle 11/02/16 [Polytrim Ophth Soln] oxyCODONE/Acetaminophen [Percocet 1 ea PO Q6H PRN #5 tab 11/02/16 5/325 mg Tab] - Allergies Allergies/Adverse Reactions: Allergies Allergy/AdvReac Type Severity Reaction Status Date / Time No Known Allergies Allergy Verified 08/01/16 12:35 Review of Systems Eyes: Positive for: Pain (b/l, described as burning) Physical Exam - Reviewed Nursing Documentation Reviewed: Yes Vital Signs Reviewed: Yes - Physical Exam Appears: Positive for: Non-toxic, No Acute Distress Head Exam: Positive for: ATRAUMATIC, NORMOCEPHALIC Skin: Positive for: Normal Color, Warm Eye Exam: Positive for: Normal appearance, EOMI, PERRL Back: Positive for: Normal Inspection. Negative for: L CVA Tenderness, R CVA Tenderness Neurologic/Psych: Positive for: Alert, Oriented. Negative for: Motor/Sensory Deficits - ECG O2 Sat by Pulse Oximetry: 99 (RA) Pulse Ox Interpretation: Normal Medical Decision Making Medical Decision Making: Impression: Bilateral Eye Pain Plan: Patient states that her back pain, which she had rated as a 3 on a scale from 1- 10 is now a 5. She reports that she takes Percocet for her pain, but there is no documentation of this in her past medical records. * Percocet 5/325 mg Tab * Reevaluation Scribe Attestation: Documented by Ana María Rodgers, acting as a scribe for Tiffanie Monteiro PA-C. Provider Scribe Attestation: All medical record entries made by the Scribe were at my direction and personally dictated by me. I have reviewed the chart and agree that the record accurately reflects my personal performance of the history, physical exam, medical decision making, and the department course for this patient. I have also personally directed, reviewed, and agree with the discharge instructions and disposition. Disposition - Clinical Impression Clinical Impression: Eye pain, Back pain - Patient ED Disposition Is Patient to be Admitted: No Counseled Patient/Family Regarding: Diagnosis, Need For Followup, Rx Given - Disposition Referrals: [facility] [Outside] Kye Mathews MD [Staff Provider] - Disposition: Routine/Home Disposition Time: 15:50 Condition: GOOD Prescriptions: oxyCODONE/Acetaminophen [Percocet 5/325 mg Tab] 1 ea PO Q6H PRN #5 tab PRN Reason: Pain, Severe (8-10) Polymyxin/Trimethoprim Sulfate [Polytrim Ophth Soln] 1 drop XX Q6H 10 Days bottle Instructions: Eye Pain (ED) Forms: [facility] ([facility])
== END 2016-11-02 16:40 | disposition home or self-care (01) ==
LOC: H.ER 13:54
DX: H57.10 Ocular pain, unspecified eye (principal); M54.9 Dorsalgia, unspecified; E78.00 Pure hypercholesterolemia, unspecified; I12.9 Hypertensive chronic kidney disease with stage 1 through stage 4 chronic kidney disease, or unspecified chronic kidney disease; Z79.82 Long term (current) use of aspirin